=== PATIENT | female | born 1960 | race Caucasian/White ===

== ENCOUNTER → 2020-02-23 | Outpatient (CLI) | payer MEDICARE, OTHER ==
[~2020-02-23] MED LIST: ALBUTEROL2.5 MG/3 M INH; AMARYL 2MG TABLE2 MG PO; AMARYL2 MG PO; AMIODARONE HCL200 MG PO; AMLODIPINE BESYL5 MG PO; ANORO ELLIPTA1 EACH INH; ASPIRIN 325MG325 MG PO; ASPIRIN EC81 MG PO; AUGMENTIN 500-500 MG PO; CLARITIN10 M2 PO; CLARITIN10 MG PO; CRESTOR20 MG PO; ETODOLAC300 MG PO; FEOSOL325 MG PO; FERROUS GLUCON324 M1 PO; FLEXERIL 10 MG10 MG PO; FLUOXETINE HCL10 M1 PO; GLIMEPIRIDE2 MG PO; HYDROCHLOROTH12.5 M1 PO; HYDROCHLOROTH12.5 MG PO; HYDROCHLOROTHIA25 MG PO; HYDROCODON-ACE1 EAC4 PO; HYDROCODON-ACE1 EAC6 PO; HYDROXYZINE HCL10 MG PO; IBUPROFEN800 MG PO; IMDUR ER TAB 6060 MG PO; KLONOPIN TAB 00.5 MG PO; KLONOPIN1 MG PO; KLOR-CON M2020 MEQ PO; LEVOFLOXACIN500 MG PO; LIPITOR40 MG PO; LISINOPRIL10 MG PO; LODINE CAP 300300 MG PO; LOPRESSOR 25 MG25 MG PO; LORTAB 10-3251 EACH PO; LOVAZA PO; LOVAZA1 GM PO; LOW DOSE ASPIRI81 MG PO; METOPROLOL TART25 MG PO; MONTELUKAST SOD10 MG PO; MUCINEX600 MG PO; NAPROSYN500 MG PO; NEURONTIN 400400 MG PO; NEURONTIN800 MG PO; NITROSTAT 0.40.4 MG SL; NITROSTAT0.4 MG SL; NORCO 10-325 T1 EACH PO; NORFLEX 100 MG100 MG PO; NORVASC 5 MG TAB5 MG PO; NORVASC5 MG PO; PLAVIX 75 MG TA75 MG PO; PREVACID15 MG PO; PROTONIX 40 MG40 M1 PO; PROTONIX40 MG PO; PROVENTIL HFA 61 INH INH; PROZAC 20 MG CA20 MG PO; RANEXA1000 MG PO; RANEXA500 MG PO; SINGULAIR10 MG PO; VENTOLIN HFA 66.7 GM INH; VENTOLIN/PROVE0.5 ML INH; VITAMIN B-121000 MCG PO
== END ==
LOC: RAD 13:49
DX: R05 Cough (principal); R91.8 Other nonspecific abnormal finding of lung field
CPT/HCPCS: 71046

== ENCOUNTER 2020-03-23 23:22 | Emergency (ER) | payer MEDICARE, OTHER ==
[~2020-03-23 23:22] MED LIST changes: -AMIODARONE HCL200 MG PO; -ETODOLAC300 MG PO; -FERROUS GLUCON324 M1 PO; -HYDROCHLOROTH12.5 MG PO; -HYDROCODON-ACE1 EAC6 PO; -HYDROXYZINE HCL10 MG PO; -LEVOFLOXACIN500 MG PO; -LODINE CAP 300300 MG PO; -LOPRESSOR 25 MG25 MG PO; -LOW DOSE ASPIRI81 MG PO; -NORFLEX 100 MG100 MG PO; -NORVASC5 MG PO; -PROZAC 20 MG CA20 MG PO; -VENTOLIN HFA 66.7 GM INH
[2020-03-24] MEDS ORDERED: NORFLEX 100 MG100 MG PO (00:49)
[2020-03-24] MEDS ORDERED: LODINE CAP 300300 MG PO (00:49)
[2020-04-20] MEDS ORDERED: HYDROCODON-ACE1 EAC6 PO (10:51)
[2020-04-20] MEDS ORDERED: VENTOLIN HFA 66.7 GM INH (10:51)
[2020-04-20] MEDS ORDERED: AMARYL2 MG PO (10:52)
[2020-04-20] MEDS ORDERED: LOVAZA1 GM PO (10:52)
[2020-04-20] MEDS ORDERED: ETODOLAC300 MG PO (10:52)
[2020-04-20] MEDS ORDERED: CLARITIN10 M2 PO (10:53)
[2020-04-20] MEDS ORDERED: HYDROCHLOROTH12.5 MG PO (10:54)
[2020-04-20] MEDS ORDERED: LOW DOSE ASPIRI81 MG PO (10:54)
== END 2020-03-24 02:34 | disposition home or self-care (01) ==
LOC: ER1 23:22
DX: S23.3XXA Sprain of ligaments of thoracic spine, initial encounter (principal); S33.5XXA Sprain of ligaments of lumbar spine, initial encounter; S40.011A Contusion of right shoulder, initial encounter; S70.01XA Contusion of right hip, initial encounter; I10 Essential (primary) hypertension; E11.9 Type 2 diabetes mellitus without complications; J44.9 Chronic obstructive pulmonary disease, unspecified; Z95.5 Presence of coronary angioplasty implant and graft; F17.210 Nicotine dependence, cigarettes, uncomplicated; Z88.1 Allergy status to other antibiotic agents; W01.0XXA Fall on same level from slipping, tripping and stumbling without subsequent striking against object, initial encounter; Y92.009 Unspecified place in unspecified non-institutional (private) residence as the place of occurrence of the external cause
CPT/HCPCS: 72128; 72131; 73030; 73502; 99284

== ENCOUNTER → 2020-04-20 | Outpatient (CLI) | payer MEDICARE, OTHER ==
[~2020-04-20] MED LIST changes: +AMIODARONE HCL200 MG PO; +ETODOLAC300 MG PO; +FERROUS GLUCON324 M1 PO; +HYDROCHLOROTH12.5 MG PO; +HYDROCODON-ACE1 EAC6 PO; +HYDROXYZINE HCL10 MG PO; +LEVOFLOXACIN500 MG PO; +LODINE CAP 300300 MG PO; +LOPRESSOR 25 MG25 MG PO; +LOW DOSE ASPIRI81 MG PO; +NORFLEX 100 MG100 MG PO; +NORVASC5 MG PO; +PROZAC 20 MG CA20 MG PO; +VENTOLIN HFA 66.7 GM INH
[2020-04-20 10:14] LABS: HEMOGLOBIN 9.4 gm/dl (12.3-15.3); RED BLOOD COUNT 4.06 M/UL (4.00-5.10); WHITE BLOOD COUNT 5.6 K/UL (4.5-11.0)
[2020-04-20 10:38] LABS: BUN/CREATININE RATIO 14 (0-10)
== END ==
LOC: EDSTATUS 09:00 → OPSV2 09:00
PROVIDERS: Orthopaedic Surgery
DX: Z01.818 Encounter for other preprocedural examination (principal); M16.11 Unilateral primary osteoarthritis, right hip; S73.101A Unspecified sprain of right hip, initial encounter
CPT/HCPCS: 36415; 80048; 81001; 83036; 85025; 87077; 87081; 87086; 87186; 93005

== ENCOUNTER → 2020-05-02 | Outpatient (CLI) | payer MEDICARE, OTHER | LOC: LAB 11:42 | DX: Z01.812 Encounter for preprocedural laboratory examination (principal); M16.11 Unilateral primary osteoarthritis, right hip; S73.101A Unspecified sprain of right hip, initial encounter | CPT/HCPCS: 80048; 81001; 85025; 86850; 86870; 86900; 86901; 86920; 86922 ==

== ENCOUNTER 2020-05-03 07:30 | Day surgery (SDC) | payer MEDICARE, OTHER ==
[~2020-05-03] VITALS: Ht 154.9 cm; Wt 78.9 kg
[~2020-05-03 07:30] MED LIST changes: -AMIODARONE HCL200 MG PO; -FERROUS GLUCON324 M1 PO; -HYDROXYZINE HCL10 MG PO; -LEVOFLOXACIN500 MG PO; -LOPRESSOR 25 MG25 MG PO; -NORVASC5 MG PO; -PROZAC 20 MG CA20 MG PO
[2020-05-03] MEDS ORDERED: HYDROXYZINE HCL10 MG PO (15:54)
[2020-05-03] MEDS ORDERED: HYDROCODON-ACE1 EAC6 PO (15:56)
--- NOTE | 2020-05-04 02:42 | NUR ---
1930 PT HAS NOT VOIDED YET SINCE COMING BACK FROM SURGERY.
--- NOTE | 2020-05-04 02:43 | NUR ---
0200 PT VOIDED LARGE AMOUNT PER BRIEF
[2020-05-04 03:51] LABS: HEMOGLOBIN 7.6 gm/dl (12.3-15.3); RED BLOOD COUNT 3.43 M/UL (4.00-5.10); WHITE BLOOD COUNT 10.7 K/UL (4.5-11.0)
[2020-05-04 04:04] LABS: BUN/CREATININE RATIO 20 (0-10)
[2020-05-04] MEDS ORDERED: FERROUS GLUCON324 M1 PO (11:09)
== END 2020-05-04 13:23 | disposition home health service (06) ==
LOC: OR 07:30 → EDSTATUS 09:15 → M/S 14:19 → OR 05-04 13:23
PROVIDERS: Orthopaedic Surgery
PROC: 3E0T3BZ Introduction of Anesthetic Agent into Peripheral Nerves and Plexi, Percutaneous Approach (ICD-10-PCS; principal; 2020-05-03 10:30)
PROC: 0SR90JA Replacement of Right Hip Joint with Synthetic Substitute, Uncemented, Open Approach (ICD-10-PCS; principal; 2020-05-03 10:30)
DX: M16.11 Unilateral primary osteoarthritis, right hip (principal); G89.18 Other acute postprocedural pain; D62 Acute posthemorrhagic anemia; I11.0 Hypertensive heart disease with heart failure; J44.9 Chronic obstructive pulmonary disease, unspecified; E78.5 Hyperlipidemia, unspecified; E11.9 Type 2 diabetes mellitus without complications; I25.10 Atherosclerotic heart disease of native coronary artery without angina pectoris; J96.11 Chronic respiratory failure with hypoxia; F17.210 Nicotine dependence, cigarettes, uncomplicated; G47.30 Sleep apnea, unspecified; K21.9 Gastro-esophageal reflux disease without esophagitis; F11.20 Opioid dependence, uncomplicated; Z99.81 Dependence on supplemental oxygen; Z95.5 Presence of coronary angioplasty implant and graft; Z79.84 Long term (current) use of oral hypoglycemic drugs; Z79.02 Long term (current) use of antithrombotics/antiplatelets; Z79.82 Long term (current) use of aspirin; Z79.899 Other long term (current) drug therapy; Z86.73 Personal history of transient ischemic attack (TIA), and cerebral infarction without residual deficits; Z88.1 Allergy status to other antibiotic agents; Z91.018 Allergy to other foods; Z20.822 Contact with and (suspected) exposure to COVID-19
CPT/HCPCS: 36415; 72170; 73501; 76000; 80048; 82962; 83540; 83550; 85025; 94640; 94664; 94760; 97110-GP-CQ; 97116-GP-CQ; 97161; 97166; 97535; C1776; J0171; J0690; J1100; J1170; J1756; J2001; J2370; J2405; J2704; J2710; J2795; J3010; J3370; J7030; J7050; J7120

== ENCOUNTER 2020-05-24 18:04 | Inpatient (IN) | payer MEDICARE, OTHER ==
[~2020-05-24] VITALS: Ht 157.5 cm; Wt 72.6 kg
[~2020-05-24 18:04] MED LIST changes: +FERROUS GLUCON324 M1 PO; +HYDROXYZINE HCL10 MG PO
[2020-05-24 19:01] LABS: HEMOGLOBIN 9.3 gm/dl (12.3-15.3); RED BLOOD COUNT 4.21 M/UL (4.00-5.10)
[2020-05-24 19:18] LABS: BUN/CREATININE RATIO 14 (0-10)
--- NOTE | 2020-05-25 00:12 | NUR ---
PATIENT STATED "I'M GONNA GET PISSED OFF" WHEN INSTRUCTED HER SHE WAS NPO AT MIDNIGHT.PATIENT DEMANDING COFFEE "I'VE BEEN ASKING FOR IT FOR 2 HOURS"
[2020-05-25] MEDS ORDERED: LOPRESSOR 25 MG25 MG PO (08:08)
[2020-05-25] MEDS ORDERED: PROZAC 20 MG CA20 MG PO (08:16)
[2020-05-25] MEDS ORDERED: NORVASC5 MG PO (10:53)
--- NOTE | 2020-05-25 19:11 | NUR ---
PER DR. ACUNA, PT HAD 500ML IN BLADDER WITH THE BLADDER SCANNER. HE TOLD ME TO STRAIGHT CATH HER TO GET THE URINE OUT. PT WAS STRAIGHT CATHED AND 700ML OUT IN URINE. PT TOLERATED WELL AND IT WAS NOTED THAT THE PATIENT HAD TO BE STRAIGHT CATHED LASTNIGHT DUE TO RETENTION. THE PT TOLERATED IT WELL WITH NO COMPLAINTS. WILL CONTINUE TO MONITOR.
[2020-05-26 03:59] LABS: BUN/CREATININE RATIO 15 (0-10)
[2020-05-27 04:50] LABS: BUN/CREATININE RATIO 10 (0-10)
[2020-05-27] MEDS ORDERED: AMIODARONE HCL200 MG PO (09:49)
[2020-05-27] MEDS ORDERED: LOPRESSOR 25 MG25 MG PO (09:49)
[2020-05-27] MEDS ORDERED: LEVOFLOXACIN500 MG PO (09:49)
== END 2020-05-27 13:00 | disposition home or self-care (01) | DRG 222 ==
LOC: ER1 18:04 → PROG CARE 20:27 → CDU 20:27 → MED SURG 4 23:02 → PROG CARE 05-25 05:05
PROVIDERS: Internal Medicine; Physician Assistant Medical; ADMIT Internal Medicine
PROC: 4A023N7 Measurement of Cardiac Sampling and Pressure, Left Heart, Percutaneous Approach (ICD-10-PCS; 2020-05-25)
PROC: 5A12012 Performance of Cardiac Output, Single, Manual (ICD-10-PCS; 2020-05-25)
PROC: B2111ZZ Fluoroscopy of Multiple Coronary Arteries using Low Osmolar Contrast (ICD-10-PCS; 2020-05-25)
PROC: B2151ZZ Fluoroscopy of Left Heart using Low Osmolar Contrast (ICD-10-PCS; 2020-05-25)
PROC: 0JH609Z Insertion of Cardiac Resynchronization Defibrillator Pulse Generator into Chest Subcutaneous Tissue and Fascia, Open Approach (ICD-10-PCS; principal; 2020-05-26)
PROC: 02HK3KZ Insertion of Defibrillator Lead into Right Ventricle, Percutaneous Approach (ICD-10-PCS; 2020-05-26)
PROC: 02H63KZ Insertion of Defibrillator Lead into Right Atrium, Percutaneous Approach (ICD-10-PCS; 2020-05-26)
PROC: 4A027FZ Measurement of Cardiac Rhythm, Via Natural or Artificial Opening (ICD-10-PCS; 2020-05-26)
PROC: 4A0274Z Measurement of Cardiac Electrical Activity, Via Natural or Artificial Opening (ICD-10-PCS; 2020-05-26)
DX: I21.4 Non-ST elevation (NSTEMI) myocardial infarction (principal); I46.2 Cardiac arrest due to underlying cardiac condition; I49.01 Ventricular fibrillation; J96.11 Chronic respiratory failure with hypoxia; I47.2 Ventricular tachycardia; Z96.641 Presence of right artificial hip joint; Z20.822 Contact with and (suspected) exposure to COVID-19; F17.210 Nicotine dependence, cigarettes, uncomplicated; E11.51 Type 2 diabetes mellitus with diabetic peripheral angiopathy without gangrene; I10 Essential (primary) hypertension; J44.9 Chronic obstructive pulmonary disease, unspecified; I25.10 Atherosclerotic heart disease of native coronary artery without angina pectoris; E11.9 Type 2 diabetes mellitus without complications; M19.90 Unspecified osteoarthritis, unspecified site; Z95.5 Presence of coronary angioplasty implant and graft; Z79.4 Long term (current) use of insulin; Z99.81 Dependence on supplemental oxygen; Z82.49 Family history of ischemic heart disease and other diseases of the circulatory system; Z90.49 Acquired absence of other specified parts of digestive tract; Z90.710 Acquired absence of both cervix and uterus; Z86.73 Personal history of transient ischemic attack (TIA), and cerebral infarction without residual deficits; Z79.82 Long term (current) use of aspirin
CPT/HCPCS: ECHO; 33249; 36415; 36600; 51701; 70450; 71045; 72072; 72100; 73502; 80048; 80053; 80307; 81001; 82140; 82550; 82553; 82803; 82962; 83605; 83735; 83874; 84132; 84439; 84443; 84484; 85025; 85610; 85730; 93005; 93306; 93620; 93641; 99152; 99153; 99285; C1721; C1730; C1766; C1769; C1777; C1898; J1644; J2250; J2270; J2370; J2405; J3010; J3370; J3475; J7030; J7040; J7050; J7070; Q9967; U0002

== ENCOUNTER 2020-07-09 19:16 | Emergency (ER) | payer MEDICARE, OTHER ==
[~2020-07-09 19:16] MED LIST changes: +AMIODARONE HCL200 MG PO; +LEVOFLOXACIN500 MG PO; +LOPRESSOR 25 MG25 MG PO; +NORVASC5 MG PO; +PROZAC 20 MG CA20 MG PO
[2020-07-09 21:36] LABS: HEMOGLOBIN 8.2 gm/dl (12.3-15.3); RED BLOOD COUNT 3.79 M/UL (4.00-5.10); WHITE BLOOD COUNT 5.4 K/UL (4.5-11.0)
[2020-07-09 21:50] LABS: BUN/CREATININE RATIO 17 (0-10)
== END 2020-07-09 22:10 | disposition home or self-care (01) ==
LOC: ER1 19:16
PROVIDERS: Preventive Medicine Occupational Medicine
DX: D50.9 Iron deficiency anemia, unspecified (principal); E53.8 Deficiency of other specified B group vitamins; J44.9 Chronic obstructive pulmonary disease, unspecified; I25.10 Atherosclerotic heart disease of native coronary artery without angina pectoris; I10 Essential (primary) hypertension; F17.210 Nicotine dependence, cigarettes, uncomplicated; Z20.822 Contact with and (suspected) exposure to COVID-19
CPT/HCPCS: 0240U; 71045; 80053; 82550; 82553; 83690; 83874; 84484; 85025; 85652; 86140; 96372; 99285; J3420; J7030

== ENCOUNTER → 2020-09-02 | Outpatient (CLI) | payer MEDICARE, OTHER | LOC: KOH-I 12:09 | DX: M25.551 Pain in right hip (principal) | CPT/HCPCS: 73502; 73564 ==

== ENCOUNTER 2020-09-15 20:56 | Emergency (ER) | payer MEDICARE, OTHER ==
[2020-09-15 23:48] LABS: HEMOGLOBIN 10.3 gm/dl (12.3-15.3); RED BLOOD COUNT 4.15 M/UL (4.00-5.10); WHITE BLOOD COUNT 4.9 K/UL (4.5-11.0)
[2020-09-16 00:10] LABS: BUN/CREATININE RATIO 11 (0-10)
== END 2020-09-16 04:22 | disposition home or self-care (01) ==
LOC: ER1 20:56
PROVIDERS: Physician Assistant
DX: U07.1 COVID-19 (principal); I25.10 Atherosclerotic heart disease of native coronary artery without angina pectoris; I50.9 Heart failure, unspecified; F17.210 Nicotine dependence, cigarettes, uncomplicated; Z88.8 Allergy status to other drugs, medicaments and biological substances
CPT/HCPCS: 36600; 71045; 80053; 82550; 82553; 82803; 83605; 83874; 83880; 84484; 85025; 87040; 93005; 99285; U0002

== ENCOUNTER 2020-09-23 12:02 | Emergency (ER) | payer MEDICARE, OTHER ==
[2020-09-23 13:42] LABS: HEMOGLOBIN 12.4 gm/dl (12.3-15.3); RED BLOOD COUNT 4.97 M/UL (4.00-5.10); WHITE BLOOD COUNT 3.9 K/UL (4.5-11.0)
[2020-09-23 15:13] LABS: BUN/CREATININE RATIO 12 (0-10)
== END 2020-09-23 20:25 | disposition home or self-care (01) ==
LOC: ER1 12:02
PROVIDERS: Physician Assistant
DX: Z23 Encounter for immunization (principal); U07.1 COVID-19; J12.82 Pneumonia due to coronavirus disease 2019; J44.9 Chronic obstructive pulmonary disease, unspecified; I11.0 Hypertensive heart disease with heart failure; I50.9 Heart failure, unspecified
CPT/HCPCS: 71045; 80053; 82550; 82553; 83874; 84484; 85025; 93005; 99285; M0243

== ENCOUNTER → 2021-01-12 | Outpatient (CLI) | payer MEDICARE, OTHER | LOC: KOH-I 14:35 | DX: R60.9 Edema, unspecified (principal); D51.8 Other vitamin B12 deficiency anemias; D50.9 Iron deficiency anemia, unspecified; K90.9 Intestinal malabsorption, unspecified | CPT/HCPCS: 93971 ==

== ENCOUNTER 2021-01-22 12:51 | Emergency (ER) | payer MEDICARE, OTHER ==
[2021-01-22 16:52] LABS: HEMOGLOBIN 11.2 gm/dl (12.3-15.3); RED BLOOD COUNT 4.66 M/UL (4.00-5.10); WHITE BLOOD COUNT 8.7 K/UL (4.5-11.0)
[2021-01-22 17:31] LABS: BUN/CREATININE RATIO 39 (0-10)
== END 2021-01-22 23:55 | disposition short-term general hospital (02) ==
LOC: ER1 12:51
PROVIDERS: Emergency Medicine
DX: R53.1 Weakness (principal); J44.9 Chronic obstructive pulmonary disease, unspecified; I10 Essential (primary) hypertension; F17.200 Nicotine dependence, unspecified, uncomplicated; Z20.822 Contact with and (suspected) exposure to COVID-19
CPT/HCPCS: 70450; 71045; 72131; 80053; 81001; 82550; 82553; 83874; 84439; 84443; 84484; 85025; 93005; 96374; 99285; J1100; U0002

== ENCOUNTER → 2021-05-11 | Outpatient (CLI) | payer MEDICARE, OTHER | LOC: KOH-I 14:05 | DX: R05.9 Cough, unspecified (principal); F17.200 Nicotine dependence, unspecified, uncomplicated | CPT/HCPCS: 71046 ==